=== PATIENT | male | born 1985 | race Caucasian/White ===

== ENCOUNTER 2022-03-16 05:27 | Inpatient (IN) | payer OTHER ==
[2022-03-16] MEDS ORDERED: Dextrose 5%-Lactated Ringers 1,000 ML IV SCH (06:00)
[2022-03-16] MEDS ORDERED: Scopolamine 1.5 MG Transdermal Patch TOP SCH (06:00)
[2022-03-16] MEDS ORDERED: Acetaminophen 500 MG Tab PO ONE (06:00)
[2022-03-16] MEDS ORDERED: Celecoxib 200 MG Cap PO ONE (06:30)
[2022-03-16 06:37] LABS: ESTIMATED GFR 90 mL/min (>60)
[2022-03-16 06:38] LABS: HEMOGLOBIN A1C 5.6 % (4.5-6.2)
[2022-03-16] MEDS ORDERED: cefOXitin 2 GM Vial ONE (06:52)
[2022-03-16] MEDS ORDERED: ceFAZolin 2 GM in Premix Bag 1 BAG IV ONE (07:00)
[2022-03-16] MEDS ORDERED: ceFAZolin 2 GM in Sodium Chloride 0.9% 100 ML IV ONE (07:00)
[2022-03-16] MEDS ORDERED: cefOXitin 2 GM in Sodium Chloride 0.9% 50 ML IV ONE (07:00)
[2022-03-16] MEDS ORDERED: cefOXitin 2 GM in Sodium Chloride 0.9% 100 ML IV ONE (07:00)
[2022-03-16] MEDS ORDERED: fentaNYL 250 MCG/5 ML SDV ONE ×2 (07:03→08:15)
[2022-03-16] MEDS ORDERED: Rocuronium 50 MG/5 ML Vial ONE ×2 (07:07→08:15)
[2022-03-16] MEDS ORDERED: Propofol 200 MG/20 ML SDV ONE (07:07)
[2022-03-16] MEDS ORDERED: Glycopyrrolate 0.2 MG/ML 5 ML MDV ONE (07:07)
[2022-03-16] MEDS ORDERED: Succinylcholine 200 MG/10 ML MDV ONE (07:07)
[2022-03-16] MEDS ORDERED: Ondansetron 4 MG/2 ML SDV ONE (07:07)
[2022-03-16] MEDS ORDERED: Neostigmine Methylsulfate 1 MG/ML 5 ML Syringe ONE (07:07)
[2022-03-16] MEDS ORDERED: Dexamethasone 4 MG/ML SDV ONE (07:07)
[2022-03-16] MEDS ORDERED: Ketamine 500 MG/5 ML MDV IV SCH (07:45)
[2022-03-16] MEDS ORDERED: Ketamine 22 MG in Sodium Chloride 0.9% 19.78 ML IV SCH (07:45)
[2022-03-16] MEDS ORDERED: Sugammadex Sodium 200 MG/2 ML VIAL ONE (09:05)
[2022-03-16] MEDS ORDERED: hydrOXYzine HCL 100 MG/2 ML SDV IM ONE (09:31)
[2022-03-16] MEDS ORDERED: fentaNYL 50 MCG/ML SDV IVPUSH ONE (09:31)
[2022-03-16] MEDS ORDERED: Cyclobenzaprine 10 MG Tab PO PRN (11:01)
[2022-03-16] MEDS ORDERED: Labetalol 20 MG/4 ML Syringe IVPUSH PRN (12:00)
[2022-03-16] MEDS ORDERED: Metoclopramide 10 MG/2 ML SDV IVPUSH PRN (12:00)
[2022-03-16] MEDS ORDERED: diphenhydrAMINE 50 MG/ML SDV IVPUSH PRN (12:00)
[2022-03-16] MEDS ORDERED: HYDROmorphone 0.5 MG/0.5 ML Syringe IVPUSH PRN (12:00)
[2022-03-16] MEDS ORDERED: hydrOXYzine HCL 100 MG/2 ML SDV IM PRN (12:00)
[2022-03-16] MEDS ORDERED: Acetaminophen 500 MG Tab PO PRN (12:00)
[2022-03-16] MEDS ORDERED: Ondansetron 4 MG/2 ML SDV IVPUSH PRN (12:00)
[2022-03-16] MEDS: Pantoprazole 40 MG Vial IVPUSH SCH (12:45)
[2022-03-16] MEDS: SCOPOLAMINE PATCH CHECK TOP SCH (13:11)
[2022-03-16] MEDS: Dextrose 5%-Lactated Ringers 1,000 ML IV SCH (13:11)
[2022-03-16] MEDS: Acetaminophen 500 MG Tab PO SCH ×2 (13:15→22:12)
[2022-03-16] MEDS: cefOXitin 2 GM in Sodium Chloride 0.9% 50 ML IV SCH ×2 (13:26→20:28)
[2022-03-16] MEDS: HYDROmorphone 1 MG/ML Syringe IV PRN ×2 (14:23→19:18)
[2022-03-16] MEDS ORDERED: MVI, Adult with Vitamin K 10 ML, Thiamine 200 MG, Zinc/Copper/Manganese/Selenium 1 ML i... IV SCH ×4 (16:00)
[2022-03-16] MEDS: Heparin Sodium 5,000 Units/ML Vial SUBCUT SCH (16:35)
[2022-03-16] MEDS: oxyCODONE 5 MG Tab PO PRN (20:27)
[2022-03-17] MEDS: Dextrose 5%-Lactated Ringers 1,000 ML IV SCH ×3 (00:11→11:22)
[2022-03-17] MEDS: Heparin Sodium 5,000 Units/ML Vial SUBCUT SCH ×4 (00:13→23:16)
[2022-03-17] MEDS: cefOXitin 2 GM in Sodium Chloride 0.9% 50 ML IV SCH ×4 (02:28→19:30)
[2022-03-17] MEDS ORDERED: Iopamidol 612 MG/ML 50 ML SDV PO ONE (03:12)
[2022-03-17] MEDS: oxyCODONE 5 MG Tab PO PRN (05:53)
[2022-03-17] MEDS: Acetaminophen 500 MG Tab PO SCH ×3 (06:44→21:16)
[2022-03-17] MEDS ORDERED: Ondansetron 4 MG Tab.DIS PO PRN (07:38)
[2022-03-17] MEDS: Lisinopril 20 MG Tab PO SCH (09:35)
[2022-03-17] MEDS: hydrOXYzine HCl 25 MG Tab PO PRN ×2 (09:35→16:39)
[2022-03-17] MEDS: Celecoxib 200 MG Cap PO SCH ×2 (09:36→21:16)
[2022-03-17] MEDS: SCOPOLAMINE PATCH CHECK TOP SCH (09:37)
[2022-03-17] MEDS: Indapamide 2.5 MG Tab PO SCH (11:23)
[2022-03-17] MEDS: FELODIPINE 10 MG PO SCH (11:23)
[2022-03-17] MEDS: Pantoprazole 40 MG Vial IVPUSH SCH (13:49)
[2022-03-17] MEDS ORDERED: MVI, Adult with Vitamin K 10 ML, Thiamine 200 MG, Zinc/Copper/Manganese/Selenium 1 ML i... IV SCH ×4 (16:00)
[2022-03-17] MEDS: traMADol 50 MG Tab PO PRN (19:31)
[2022-03-18] MEDS: Dextrose 5%-Lactated Ringers 1,000 ML IV SCH (03:20)
[2022-03-18] MEDS: Acetaminophen 500 MG Tab PO SCH (05:15)
[2022-03-18] MEDS: traMADol 50 MG Tab PO PRN (07:41)
[2022-03-18] MEDS: Heparin Sodium 5,000 Units/ML Vial SUBCUT SCH (07:43)
[2022-03-18] MEDS ORDERED: Cyanocobalamin (Vitamin B12) 1,000 MCG/ML SDV IM ONE (09:00)
[2022-03-18] MEDS: SCOPOLAMINE PATCH CHECK TOP SCH (09:55)
[2022-03-18] MEDS: Celecoxib 200 MG Cap PO SCH (10:04)
[2022-03-18] MEDS: Lisinopril 20 MG Tab PO SCH (10:05)
[2022-03-18] MEDS: Indapamide 2.5 MG Tab PO SCH (10:05)
[2022-03-18] MEDS: FELODIPINE 10 MG PO SCH (10:05)
== END 2022-03-18 10:20 | disposition home or self-care (01) | DRG 621 ==
LOC: JP.SDS 05:27 → EDSTATUS 07:15 → JP.MS 09:30
PROVIDERS: ADMIT Surgery; ATTEND Surgery
PROC: 0DB64Z3 Excision of Stomach, Percutaneous Endoscopic Approach, Vertical (ICD-10-PCS; principal; 2022-03-16)
PROC: 0FB24ZX Excision of Left Lobe Liver, Percutaneous Endoscopic Approach, Diagnostic (ICD-10-PCS; 2022-03-16)
PROC: 0BQT4ZZ Repair Diaphragm, Percutaneous Endoscopic Approach (ICD-10-PCS; 2022-03-16)
DX: E66.01 Morbid (severe) obesity due to excess calories (principal); I10 Essential (primary) hypertension; K21.9 Gastro-esophageal reflux disease without esophagitis; K44.9 Diaphragmatic hernia without obstruction or gangrene; R16.0 Hepatomegaly, not elsewhere classified; Z68.43 Body mass index [BMI] 50.0-59.9, adult; Z79.899 Other long term (current) drug therapy; Z88.6 Allergy status to analgesic agent; M54.9 Dorsalgia, unspecified
CPT/HCPCS: 36415; 74240; 74240-26; 80053; 83036; 83735; 83880; 84100; 85027; 86850; 86900; 86901; 88304; 88307; 88313; 93005; 93010; A9270-GY; C9113; J0171; J0330; J0694; J1100; J1170; J1644; J2405; J2704; J2710; J2795; J3010; J3410; J3411; J3420; J3490; J7121; Q9967

== ENCOUNTER 2022-08-31 06:48 | Inpatient (IN) | payer OTHER ==
[2022-08-31] MEDS ORDERED: Acetaminophen 500 MG Tab PO ONE (07:00)
[2022-08-31] MEDS ORDERED: Scopolamine 1.5 MG Transdermal Patch TRDERM ONE (07:00)
[2022-08-31] MEDS ORDERED: Celecoxib 200 MG Cap PO ONE (07:00)
[2022-08-31] MEDS ORDERED: fentaNYL 250 MCG/5 ML SDV ONE ×2 (07:19→09:29)
[2022-08-31] MEDS ORDERED: Rocuronium 50 MG/5 ML Vial ONE ×2 (07:20→09:36)
[2022-08-31] MEDS ORDERED: Lactated Ringers 1,000 ML ONE (07:20)
[2022-08-31] MEDS ORDERED: Propofol 200 MG/20 ML SDV ONE ×2 (07:20→09:08)
[2022-08-31] MEDS ORDERED: Ondansetron 4 MG/2 ML SDV ONE (07:20)
[2022-08-31] MEDS ORDERED: Glycopyrrolate 0.2 MG/ML 5 ML MDV ONE (07:20)
[2022-08-31] MEDS ORDERED: Dexamethasone 4 MG/ML SDV ONE (07:20)
[2022-08-31] MEDS ORDERED: Succinylcholine 200 MG/10 ML MDV ONE (07:20)
[2022-08-31] MEDS ORDERED: Neostigmine Methylsulfate 1 MG/ML 5 ML Syringe ONE (07:20)
[2022-08-31] MEDS ORDERED: cefOXitin 2 GM Vial ONE (07:29)
[2022-08-31] MEDS ORDERED: cefOXitin 2 GM in Sodium Chloride 0.9% 50 ML IV ONE (07:30)
[2022-08-31] MEDS ORDERED: Dextrose 5%-Lactated Ringers 1,000 ML IV SCH (07:30)
[2022-08-31] MEDS ORDERED: Ketamine 22 MG in Sodium Chloride 0.9% 19.78 ML IV SCH (08:30)
[2022-08-31] MEDS ORDERED: Ketamine 500 MG/5 ML MDV IV SCH (08:30)
[2022-08-31] MEDS ORDERED: Labetalol 20 MG/4 ML Syringe ONE (09:56)
[2022-08-31] MEDS ORDERED: hydrOXYzine HCL 100 MG/2 ML SDV IM ONE (11:09)
[2022-08-31] MEDS ORDERED: fentaNYL 50 MCG/ML SDV IVPUSH ONE (11:09)
[2022-08-31] MEDS ORDERED: Cyclobenzaprine 10 MG Tab PO PRN (12:07)
[2022-08-31] MEDS: Dextrose 5%-Lactated Ringers 1,000 ML IV SCH ×2 (12:09→21:55)
[2022-08-31] MEDS: HYDROmorphone 1 MG/ML Syringe IV PRN ×3 (12:16→22:26)
[2022-08-31] MEDS ORDERED: Metoclopramide 10 MG/2 ML SDV IVPUSH PRN (13:00)
[2022-08-31] MEDS ORDERED: HYDROmorphone 0.5 MG/0.5 ML Syringe IVPUSH PRN (13:00)
[2022-08-31] MEDS ORDERED: diphenhydrAMINE 50 MG/ML SDV IVPUSH PRN (13:00)
[2022-08-31] MEDS ORDERED: Ondansetron 4 MG/2 ML SDV IVPUSH PRN (13:00)
[2022-08-31] MEDS ORDERED: hydrOXYzine HCL 100 MG/2 ML SDV IM PRN (13:00)
[2022-08-31] MEDS ORDERED: Acetaminophen 500 MG Tab PO PRN (13:00)
[2022-08-31] MEDS ORDERED: Labetalol 20 MG/4 ML Syringe IVPUSH PRN (13:00)
[2022-08-31] MEDS ORDERED: Pantoprazole 40 MG Vial IVPUSH SCH (14:00)
[2022-08-31] MEDS: cefOXitin 2 GM in Sodium Chloride 0.9% 50 ML IV SCH ×2 (14:45→19:16)
[2022-08-31] MEDS: Acetaminophen 500 MG Tab PO SCH ×2 (15:06→22:23)
[2022-08-31] MEDS: MVI, Adult with Vitamin K 10 ML, Thiamine 200 MG, Zinc/Copper/Manganese/Selenium 1 ML i... IV SCH ×4 (16:00)
[2022-08-31] MEDS: Heparin Sodium 5,000 Units/ML Vial SUBCUT SCH (17:37)
[2022-08-31] MEDS: oxyCODONE 5 MG Tab PO PRN (19:12)
[2022-09-01] MEDS ORDERED: Iopamidol 612 MG/ML 50 ML SDV PO ONE (01:41)
[2022-09-01] MEDS: HYDROmorphone 1 MG/ML Syringe IV PRN (02:19)
[2022-09-01] MEDS: cefOXitin 2 GM in Sodium Chloride 0.9% 50 ML IV SCH ×4 (02:19→19:36)
[2022-09-01] MEDS: Dextrose 5%-Lactated Ringers 1,000 ML IV SCH ×2 (02:20→12:18)
[2022-09-01] MEDS: Acetaminophen 500 MG Tab PO SCH ×3 (05:56→22:07)
[2022-09-01] MEDS: Heparin Sodium 5,000 Units/ML Vial SUBCUT SCH ×2 (05:56→18:47)
[2022-09-01] MEDS ORDERED: Ondansetron 4 MG Tab.DIS PO PRN (07:32)
[2022-09-01] MEDS ORDERED: hydrOXYzine HCl 25 MG Tab PO PRN ×2 (07:33→07:49)
[2022-09-01] MEDS: Celecoxib 200 MG Cap PO SCH ×2 (08:13→22:08)
[2022-09-01] MEDS ORDERED: Lisinopril 20 MG Tab PO SCH (09:00)
[2022-09-01] MEDS ORDERED: SCOPOLAMINE PATCH CHECK TOP SCH (09:00)
[2022-09-01] MEDS: oxyCODONE 5 MG Tab PO PRN (13:20)
[2022-09-01] MEDS: Pantoprazole 40 MG Tab.CR PO SCH (15:29)
[2022-09-01] MEDS: MVI, Adult with Vitamin K 10 ML, Thiamine 200 MG, Zinc/Copper/Manganese/Selenium 1 ML i... IV SCH ×4 (16:53)
[2022-09-01] MEDS: traMADol 50 MG Tab PO PRN (19:37)
[2022-09-02] MEDS: Dextrose 5%-Lactated Ringers 1,000 ML IV SCH (02:50)
[2022-09-02] MEDS: Acetaminophen 500 MG Tab PO SCH (05:14)
[2022-09-02] MEDS: Heparin Sodium 5,000 Units/ML Vial SUBCUT SCH (05:15)
[2022-09-02] MEDS: traMADol 50 MG Tab PO PRN (05:18)
[2022-09-02] MEDS: Pantoprazole 40 MG Tab.CR PO SCH (07:15)
[2022-09-02] MEDS ORDERED: Cyanocobalamin (Vitamin B12) 1,000 MCG/ML SDV IM ONE (09:00)
== END 2022-09-02 09:00 | disposition home or self-care (01) | DRG 620 ==
LOC: JP.SDSSCHI 06:48 → JP.2SS 11:05
PROVIDERS: ADMIT Surgery; ATTEND Surgery
PROC: 0D194ZB Bypass Duodenum to Ileum, Percutaneous Endoscopic Approach (ICD-10-PCS; principal; 2022-08-31)
PROC: 0DB84ZZ Excision of Small Intestine, Percutaneous Endoscopic Approach (ICD-10-PCS; 2022-08-31)
PROC: 0DQ84ZZ Repair Small Intestine, Percutaneous Endoscopic Approach (ICD-10-PCS; 2022-08-31)
DX: E66.01 Morbid (severe) obesity due to excess calories (principal); K56.51 Intestinal adhesions [bands], with partial obstruction; I10 Essential (primary) hypertension; K21.9 Gastro-esophageal reflux disease without esophagitis; Z98.84 Bariatric surgery status; Z79.899 Other long term (current) drug therapy; Z88.6 Allergy status to analgesic agent; Z68.42 Body mass index [BMI] 45.0-49.9, adult
CPT/HCPCS: 36415; 74240; 74240-26; 82947; 86850; 86900; 86901; A9270-GY; C9113; J0171; J0330; J0694; J1100; J1170; J1644; J2405; J2704; J2710; J2795; J3010; J3410; J3411; J3420; J3490; J7120; J7121; Q9967

== ENCOUNTER 2023-11-07 07:44 | Day surgery (SDC) | payer OTHER ==
[2023-11-07] MEDS: Lactated Ringers 1,000 ML IV ONE (08:17)
[2023-11-07] MEDS ORDERED: Midazolam 1 MG/ML 2 ML SDV ONE (08:53)
[2023-11-07] MEDS ORDERED: Propofol 200 MG/20 ML SDV ONE ×3 (08:53→09:42)
[2023-11-07] MEDS ORDERED: fentaNYL 100 MCG/2 ML SDV ONE (08:53)
[2023-11-07] MEDS: MVI, Adult with Vitamin K 10 ML, Thiamine 200 MG, Zinc/Copper/Manganese/Selenium 1 ML i... IV ONE (09:14)
[2023-11-07] MEDS: Cyanocobalamin (Vitamin B12) 1,000 MCG/ML SDV IM ONE (10:41)
== END 2023-11-07 10:50 | disposition home or self-care (01) ==
LOC: JP.SDS 07:44
PROVIDERS: ATTEND Student in an Organized Health Care Education/Training Program
DX: K29.50 Unspecified chronic gastritis without bleeding (principal); K31.7 Polyp of stomach and duodenum; K22.89 Other specified disease of esophagus; K21.9 Gastro-esophageal reflux disease without esophagitis; I10 Essential (primary) hypertension; G47.33 Obstructive sleep apnea (adult) (pediatric); Z88.6 Allergy status to analgesic agent
CPT/HCPCS: 43239; 88305; J2250; J2704; J3010; J3411; J7120; J3490